=== PATIENT | female | born 1995 | race Caucasian/White ===

== ENCOUNTER 2025-06-19 21:51 | Emergency (ER) | payer BC, SELFPAY ==
[2025-06-19 21:54] VITALS: BP 158/104
[2025-06-19 22:10] LABS: Hematocrit 37.8 % (37.0-47.0); Hemoglobin 13.0 g/dL (12.0-16.0); Mean Corp Hgb Conc. 34.4 g/dL (33.0-37.0); Mean Corpuscular Volume 80.1 fL (81.0-99.0); Nucleated Red Blood Cells % 0 %; Platelet Count 217 10^3/uL (130-400); Red Cell Dist. Width 12.3 % (11.5-14.5)
[2025-06-19 22:30] LABS: ALT (SGPT) 12 U/L (0-35); AST (SGOT) 17 U/L (14-36); Albumin 4.4 g/dl (3.5-5.0); Alkaline Phosphatase 55 U/L (38-126); Blood Urea Nitrogen 10 mg/dl (7-17); Calcium 9.6 mg/dl (8.4-10.2); Carbon Dioxide 24 mmol/L (22-30); Chloride 101 mmol/L (98-107); Glucose 83 mg/dl (70-99); Potassium 4.2 mmol/L (3.5-5.1); Sodium 130 mmol/L (135-145); Total Protein 7.3 g/dl (6.3-8.2); eGFR > 60.00
[2025-06-19 23:35] VITALS: BP 117/76
--- NOTE | 2025-06-20 00:36 | ED.GENMED ---
History of Present Illness
General
Chief Complaint: Problems
Source: patient
Exam Limitations: none
Time Seen by Provider: 06/19/25 23:29
Nursing documentation reviewed up to this point in time: agreed with
History of Present Illness
History of Present Illness:
30-year-old female 3 para 1 tubal 1 presents stating she is 13 weeks and at 9 PM had mild bleeding when she wiped herself after going to the bathroom, she put a pad on and has minimal blood on the pad. She had one quarter
sized clot early on. She denies any significant abdominal cramping. She has an appointment after the weekend on Sunday with her OB doctor.
Past History
Past History
ED Past Medical History: None
ED Past Surgical History:
Social History
Tobacco: Non-smoker
Personal:
Living: with family
Employment: Employed
Review of Systems
Review of Systems
Allergies reviewed?: Yes
All Other Systems: ROS reviewed and negative except as documented in HPI and ROS
Phy Exam
Physical Exam
Physical Exam:
GENERAL: No acute distress. A&Ox3.
CONSTITUTIONAL: Afebrile.
RESPIRATORY: Regular respirations, nonlabored, lungs clear.
CARDIOVASCULAR: Regular rate and rhythm, no murmurs, no rubs.
GI: Soft, nontender, normal BS
MUSCULOSKELETAL: Moves with ease. Well perfused.
SKIN: Warm, dry, pink
PSYCH: Normal mood and affect. Well kept, interactive and appropriate
NEUROLOGIC: Awake, alert and oriented. No focal neurological deficits
Course
Orders/Labs/Results
Orders:
Orders
06/19/25 22:00
US 1st Trimester Urgent
Reason For Exam: vaginal bleeding 13 weeks
06/19/25 22:02
Type And Crossmatch [Type+Screen] Urgent
Complete Blood Count/With Diff Urgent
Comprehensive Metabolic Panel Urgent
Abnormal Lab Results
06/19/25
22:02
MCV 80.1 L fL
(81.0-99.0)
Sodium 130 L mmol/L
(135-145)
06/19/25 22:02
06/19/25 22:02
Vital Signs
Initial and Last Documented VS:
Initial Vital Signs
Temp Pulse Resp BP Pulse Ox
98 F 74 20 158/104 99
06/19/25 21:54 06/19/25 21:54 06/19/25 21:54 06/19/25 21:54 06/19/25 21:54
Last Documented Vital Signs
Temp Pulse Resp BP Pulse Ox
98 F 70 16 117/76 100
06/19/25 21:54 06/19/25 23:35 06/19/25 23:35 06/19/25 23:35 06/20/25 00:45
Information
Weeks gestation: Weeks: (12)
Location: Location: (intrauterie)
MDM/Problems Addressed
Differential Diagnosis Includes:
Subchorionic hemorrhage, threatened miscarriage
MDM/Problems Addressed:
30-year-old female 3 para 1 tubal 1 presents stating she is 13 weeks and at 9 PM had mild bleeding when she wiped herself after going to the bathroom, she put a pad on and has minimal blood on the pad. She had one quarter
sized clot early on. She denies any significant abdominal cramping. She has an appointment after the weekend on Sunday with her OB doctor.
CBC normal
CMP normal save for sodium of 130. She will discuss this with her [employer] [employer] doctor in 2 days
Vision radiology ultrasound report read: Single living intrauterine at 12 weeks 3 days. heart rate of 152. Otherwise unremarkable
Results discussed with pt and . Copy of report given to them.
She will contact her OB on Sunday to inform of today's visit
*Pulse Oximetry
SaO2: 100
Oxygen Mode of Delivery: Room air
Patient hypoxic: no
*Critical Care Note
Total Time (30-74mins, 75-104mins- exclusive of procedures): Not Applicable
ED Attending Note
-
Portions of this chart may have been created with voice recognition software.� Occasional wrong word or��sound alike� substitutions may have occurred due to the inherent limitations of voice recognition software.
Discharge Plan
Departure
Patient Disposition: Home (Routine Discharge)
Date of Disposition: 06/20/25
Time of Disposition: 00:44
Patient with high blood pressure during this ER visit?: No
Condition: Good
Discharge Problem:
Bleeding in early
Instructions: Bleeding in early - ED (DC)
Prescriptions:
No Action
Multi For Her
1 tab PO DAILY
Patient Comments:
pre
Referrals:
Adrian De Guzman MD [Active, Gynecology] - Keep scheduled appt
NONE,* [Family Provider, Internal Medicine]
Activity Restrictions/Additional Instructions:
As we discussed, your ultrasound is reassuring of a normal .
Your lab work shows nothing worrisome.
Your sodium is a little low at 130, discuss this with your OB doctor as she may want to have it rechecked.
Return here over the weekend for increasing bleeding, abdominal pain/cramping or feeling worse in any way
Interventions
Interventions:
*General Assessment Last Done: 06/19/25 21:54
*Neglect/Abuse Screening Last Done: 06/19/25 23:36
*ED- Fall Risk Assessment Last Done: 06/19/25 23:36
*ED COVID-19 Vaccine History Last Done: 06/19/25 23:36
*ED Influenza Vaccine History Last Done: 06/19/25 23:36
*Nursing Disposition Last Done: 06/20/25 00:53
ED-Female Genitourinary Assessment Last Done: 06/19/25 23:36
Discharge Date and Time
Discharge Date/Time: 06/20/25 00:53
Print Language: [id number]
== END 2025-06-20 00:53 | disposition home or self-care (01) ==
LOC: EMR 21:51
PROVIDERS: EMERGENCY PHYSICIAN Emergency Medicine; REFERRING PHYSICIAN Obstetrics & Gynecology
DX: O20.9 Hemorrhage in early pregnancy, unspecified (principal); Z3A.13 13 weeks gestation of pregnancy
CPT/HCPCS: 99284; 76801; 80053; 85025; 86850; 86900; 86901